=== PATIENT | male | born 1985 | race Caucasian/White ===

== ENCOUNTER 2021-10-01 15:28 | Emergency (ER) | payer BC, SELFPAY ==
[2021-10-01 15:38] VITALS: BP 139/89; PULSE 78; RESP 16; TEMP 36.4; O2SAT 99
--- NOTE | 2021-10-01 15:39 | ED.EAR ---
HPI - Ear Problem General Chief complaint: Ear Stated complaint: Cough,Ear Pain Time Seen by Provider: 10/01/21 15:41 Source: patient Mode of arrival: ambulatory Limitations: no limitations History of Present Illness HPI Narrative: 36 y/o male presented for c/o left ear pain and sore throat for over one week. Endorses cough and congestion which has been improving with Mucinex. Denies tinnitus, dizziness, n/v/d/f/c. Endorses has similar symptoms. MD Complaint: ear pain Related Data Allergies Allergy/AdvReac Type Severity Reaction Status Date / Time No Known Allergies Allergy Verified 10/01/21 15:41 Review of Systems Review of Systems: CONSTITUTIONAL: Denies malaise, chills, or fever. EYES: Denies visual changes, redness, or discharge. ENT: Denies rhinorrhea, congestion, sinus pain, and sore throat. Reports ear pain CARDIOVASCULAR: Denies chest pain, palpitations, or edema. RESPIRATORY: Denies dyspnea. GASTROINTESTINAL: Denies abdominal pain, nausea, vomiting, diarrhea SKIN: Denies rash or itching. MUSCULOSKELETAL: Denies myalgia. NEUROLOGIC: Denies headache. All systems reviewed & are unremarkable except as noted in HPI and below PMFSH Comments At time of signature, agree with nursing past medical, surgical, social and family history. There is no relevant family history pertinent to the presenting complaint Exam Narrative: GENERAL: Well-appearing EYES: conjunctivae clear ENT: Nares clear. Mucous membranes moist. Left TM erythematous and bulging with dull reflex, canal erythematous without drainage; Right TM pearly ennis with dull light reflex; no tragal tenderness bilaterally. Oropharynx not erythematous without lesions. Tonsils not enlarged and without exudate, no drooling, no hoarseness, no trismus, uvula midline. NECK: left mild anterior cervical lymphadenopathy CHEST: Clear to auscultation, breath sounds equal. HEART: Regular rate and rhythm. No murmur heard. SKIN: Warm, dry, no rash. NEURO: Alert and oriented x3. PSYCH: Normal mood and affect Course Course Emergency Course: Patient is aware of diagnosis, understands and agrees to treatment plan. Anticipatory guidance given. Patient agrees to follow-up as directed and is aware of reasons to seek care at the emergency department. Portions of this record may have been created with voice recognition software Level of Care: Express Care Visit Vital Signs Vital signs: Vital Signs Temperature 97.6 F 10/01/21 15:38 Pulse Rate 78 10/01/21 15:38 Respiratory Rate 16 10/01/21 15:38 Blood Pressure 139/89 10/01/21 15:38 Pulse Oximetry 99 10/01/21 15:38 Oxygen Delivery Room Air 10/01/21 15:38 Temperature 97.6 F 10/01/21 15:38 Pulse Rate 78 10/01/21 15:38 Respiratory Rate 16 10/01/21 15:38 Blood Pressure 139/89 10/01/21 15:38 Pulse Oximetry 99 10/01/21 15:38 Oxygen Delivery Room Air 10/01/21 15:38 Reviewed Medical Decision Making MDM Narrative Medical decision making narrative: Advised supportive measures and signs/symptoms to go to the ER. Pt is appropriate for outpt treatment and f/u. Patient is non-toxic appearing and is in no distress. Patient is appropriate for outpatient treatment and follow-up. Differential Diagnosis Differential Diagnosis: Coronavirus, strep pharyngitis, allergic rhinitis, upper respiratory tract infection, sinusitis, rhinosinusitis, nasopharyngitis, viral pharyngitis, otitis media, otitis externa, eustachian tube dysfunction, foreign body, cerumen impaction. Vital Signs Vital Signs: Vital Signs Temperature 97.6 F 10/01/21 15:38 Pulse Rate 78 10/01/21 15:38 Respiratory Rate 16 10/01/21 15:38 Blood Pressure 139/89 10/01/21 15:38 Pulse Oximetry 99 10/01/21 15:38 Oxygen Delivery Room Air 10/01/21 15:38 Temperature 97.6 F 10/01/21 15:38 Pulse Rate 78 10/01/21 15:38 Respiratory Rate 16 10/01/21 15:38 Blood Pressure 139/89 10/01/21 15:38 Pulse Oximetry
== END 2021-10-01 15:50 | disposition home or self-care (01) ==
PROVIDERS: Emergency Provider Nurse Practitioner Family
DX: H66.002 Acute suppurative otitis media without spontaneous rupture of ear drum, left ear (principal)
CPT/HCPCS: 99213; G0463

== ENCOUNTER 2022-01-22 16:45 | Emergency (ER) | payer BC, SELFPAY ==
--- NOTE | ~2022-01-22 | XR_ITS ---
EXAM: XR finger 2nd LT min 2V DATE: 01/22/2022 18:14 HISTORY: lac, r/o fb/fx . COMPARISON: None available. FINDINGS: Normal mineralization. No fracture or dislocation. No lytic or blastic lesion. Joint space s are maintained. No erosion or periosteal change. Soft tissues within normal limits. IMPRESSION: No acute osseous finding in the left second digit. No radiopaque foreign body. Reviewed, dictated and finalized at location [facility]. [employer] SAL[employer] REPRESENTATIVE IMPRESSION: No acute osseous finding in the left second digit. No radiopaque fo reign body.
[2022-01-22 16:51] VITALS: BP 146/85; PULSE 85; RESP 18; TEMP 37; O2SAT 99
--- NOTE | 2022-01-22 18:15 | ED.WOUNDLAC ---
HPI - Wound/Laceration General Chief Complaint: Wound/Laceration <STERLING Barrera Last Filed: 01/23/22 03:22> Stated Complaint: left 2nd finger lac <STERLING Barrera Last Filed: 01/23/22 03:22> Time Seen by Provider: 01/22/22 17:59 <STERLING Barrera Last Filed: 01/23/22 03:22> Source: patient <STERLING Barrera Last Filed: 01/23/22 03:22> Mode of arrival: ambulatory <STERLING Barrera Last Filed: 01/23/22 03:22> Limitations: no limitations <STERLING Barrera Last Filed: 01/23/22 03:22> History of Present Illness HPI narrative: Patient is a 36-year-old male who presents the ED with report of a laceration to his left second digit. Patient reports he was using a joint cutter knife and accidentally slipped and cut the base of his left second digit on the dorsal side. Bleeding controlled by the time of my evaluation. No other injuries. No numbness, weakness. Tetanus status unknown. <STERLING Barrera Last Filed: 01/23/22 03:22> Related Data Allergies/Adverse Reactions: Allergies Allergy/AdvReac Type Severity Reaction Status Date / Time No Known Allergies Allergy Verified 10/01/21 15:41 <STERLING Barrera Last Filed: 01/23/22 03:22> Review of Systems Review of Systems: CONSTITUTIONAL: Denies fever, chills, or sweats. SKIN: Reports laceration to left second digit. MUSCULOSKELETAL: Denies pain. NEUROLOGIC: Denies tingling, numbness, or weakness. <STERLING Barrera Last Filed: 01/23/22 03:22> All systems reviewed & are unremarkable except as noted in HPI and below <STERLING Barrera Last Filed: 01/23/22 03:22> [facility] Past Medical History Medical History: Medical History No pertinent past medical history <Bozena England PA-C - Last Filed: 01/23/22 03:22> Surgical History Surgical History: Surgical History (Updated 01/22/22 @ 18:17 by Bozena England PA-C) No pertinent past surgical history <Bozena England PA-C - Last Filed: 01/23/22 03:22> Social History Social History: Social History (Updated 01/22/22 @ 18:17 by Bozena England PA-C) Smoking status: Never smoker <Bozena England PA-C - Last Filed: 01/23/22 03:22> Exam Narrative: GENERAL: Well appearing, well-nourished, non-toxic, in no acute distress. HEAD: Normocephalic, atraumatic. NECK: Supple. No adenopathy, no masses. RESPIRATORY: Airway patent, respirations nonlabored. CARDIOVASCULAR: Regular rate and rhythm without murmurs, rubs, or gallops. Radial pulses 2+ and equal bilaterally. MUSCULOSKELETAL: Moves all extremities. Strength/ROM intact without gross deformities. Sensation intact. SKIN: Warm, dry, normal color. No rashes. Approximately 2 cm laceration to base of left second digit just distal to MCP joint on dorsal surface of hand. NEURO: A&O X3. Speech clear. Cranial nerves II-XII grossly intact. Steady gait. No ataxic movements. PSYCHIATRIC: Appropriate mood and affect. Normal interaction. <Bozena England PA-C - Last Filed: 01/23/22 03:22> Course SENIOR SOFTWARE DEVELOPER/PA Physician Supervision For this patient encounter, I reviewed the SENIOR SOFTWARE DEVELOPER or PA documentation, treatment plan, and medical decision making <Michele Payne MD - Last Filed: 02/02/22 14:13> Vital Signs Vital signs: Vital Signs Temperature 98.6 F 01/22/22 16:51 Pulse Rate 85 01/22/22 16:51 Respiratory Rate 18 01/22/22 16:51 Blood Pressure 146/85 H 01/22/22 16:51 Pulse Oximetry 99 01/22/22 16:51 Oxygen Delivery Room Air 01/22/22 16:51 Temperature 98.3 F 01/22/22 20:08 Pulse Rate 76 01/22/22 20:08 Respiratory Rate 16 01/22/22 20:08 Blood Pressure 132/70 01/22/22 20:08 Pulse Oximetry 100 01/22/22 20:08 Oxygen Delivery Room Air 01/22/22 16:51 <Bozena England PA-C - L
[2022-01-22] MEDS: LIDOCAINE HCL 1% LOCAL INJ 20 ML VIAL (19:42)
[2022-01-22] MEDS: TETANUS,DIPHTHERIA,AC PERTUSSIS ADULT (0.5 ML) BOOSTRIX IM (19:43)
[2022-01-22 20:08] VITALS: BP 132/70; PULSE 76; RESP 16; TEMP 36.8; O2SAT 100
== END 2022-01-22 20:11 | disposition home or self-care (01) ==
PROVIDERS: Emergency Provider Emergency Medicine
DX: S61.211A Laceration without foreign body of left index finger without damage to nail, initial encounter (principal); W26.0XXA Contact with knife, initial encounter; Z23 Encounter for immunization
CPT/HCPCS: 12001; 73140; 90471; 90714; 90715; 99283